=== PATIENT | female | born 1980 | race Hispanic/Latino ===

== ENCOUNTER 2020-07-15 01:44 | Inpatient (IN) | payer OTHER ==
[2020-07-15] MEDS ORDERED: BUTORPHANOL 1 MG/ML INJ IV PRN (03:09)
[2020-07-15] MEDS ORDERED: Ringers Lactate 1,000 ML IV PRN (03:09)
[2020-07-15] MEDS ORDERED: CARBOPROST TROME 250 MCG/ML IM PRN ×2 (03:09→07:07)
[2020-07-15] MEDS ORDERED: PROMETHAZINE INJ 25 MG/ML AMP IV PRN (03:09)
[2020-07-15] MEDS ORDERED: METHYLERGONOVINE 0.2MG/ML AMP IM PRN ×2 (03:09→07:07)
[2020-07-15 03:27] LABS: Basophils % 1.6 % (0-1.3); Hematocrit 40.9 % (36.0-45.0); Lymphocytes % 25.7 % (15.3-44.8); MPV 11.9 fL (7.6-11.3)
[2020-07-15 03:28] VITALS: BMI 27.6
[2020-07-15] MEDS ORDERED: FENTANYL CITR 100 MCG/2 ML IV ONE (03:57)
[2020-07-15] MEDS ORDERED: ROPIVACAINE HCL 100 ML IV PRN ×2 (03:57→07:08)
[2020-07-15] MEDS ORDERED: ROPIVACAINE HCL 0.2% 20ML AMP SQ ONE ×2 (03:59→04:30)
[2020-07-15] MEDS ORDERED: OXYTOCIN/LR 20 UNIT/1,000 ML BAG IV SCH ×2 (04:00→08:00)
[2020-07-15] MEDS ORDERED: Ringers Lactate 1,000 ML IV SCH (04:00)
--- NOTE | 2020-07-15 04:00 | P.PN ---
Date of Service: 07/15/20 39 y/0 female, at 38+ wks gestation admitted with SROM and ctx. Now 4+c, dilated, will call anesthesia for epidural placement.
[2020-07-15] MEDS ORDERED: ROPIVACAINE HCL 20 ML ONE (04:35)
--- NOTE | 2020-07-15 05:10 | PREOPHP ---
Date of Admission: 07/15/2020 History Of Present Illness: Ms. Whitfield is a 39-year-old female, 5, para 1-0 -3-1 and followed by me during this . She is now at 38+ weeks gestation, is admitted with s pontaneous rupture of membranes. She noticed a gush of fluid approximately 10 o'clock last night and this continued. She presents to Labor and Delivery for evaluation. She has been followed by me dur ing this for advanced maternal age, prior spontaneous AB x2. Rh negative blood type. Rube lla nonimmune and gestational diabetes on glyburide. Past Medical History: Please see record. Family History: Please see record. Review of Systems: She denies recent cough, cold, fever, or chills. No recent nausea or vomiting. No breast knots or l umps. Infant has been active. She denies urine symptoms or bowel issues. She is now shayne ap proximately every 2-3 minutes with moderate intensity. Physical Examination: General: Reveals a pleasant female, in mild discomfort. Neck: Supple without adenopathy or thyromegaly. Lungs: Clear. Cardiac: Regular rate and rhythm without murmurs. Breasts: Not examined. Abdomen: 7+ pound estimated weight. PELVIC: Cervix now 4+ cm, soft, anterior vertex at 0 station. Extremities: No cyanosis, clubbing, or edema. heart tones are reactive on the external monitor. Impression: A 38+ weeks , spontaneous rupture of membranes, active labor, advanced maternal age, gestational diabetes on oral medication, rubella nonimmune, Rh negative blood type. Plan: The patient is admitted. We will have anesthesia place, epidural catheter for patient comfort . SARITA/KASSY Voice ID: [id number]
[2020-07-15] MEDS ORDERED: LIDOCAINE 1% MPF 30 ML VIAL ONE (06:52)
[2020-07-15] MEDS ORDERED: Rho(D) IG (HUMAN) 300 MCG SYR IM PRN (07:07)
[2020-07-15] MEDS ORDERED: METHYLERGONOVINE 0.2 MG TAB PO PRN (07:07)
[2020-07-15] MEDS ORDERED: ONDANSETRON 4 MG (ODT) TAB PO PRN (07:07)
[2020-07-15] MEDS ORDERED: Oxycodone HCl/Acetaminophen 1 TAB TAB PO PRN (07:07)
[2020-07-15] MEDS ORDERED: MEASLES,MUMPS,RUBELLA VAC 0.5ML SQVAC ONE (07:07)
[2020-07-15] MEDS ORDERED: Tdap (Diph,Pertuss(Acell),Tet Vac) 0.5 ML SYR IMVAC ONE (07:07)
[2020-07-15] MEDS ORDERED: IBUPROFEN 600 MG TAB PO PRN (07:07)
--- NOTE | 2020-07-15 07:13 | P.BOP ---
Preoperative diagnosis: 38+wk pregancy, AMA, SROM Postoperative diagnosis: viable male infant Primary procedure: SCVD OP Secondary procedure: repair 2 degree midline laceration Estimated blood loss: 100 Anesthesia: epidural Complications: None Transferred to: Other ([id number]) Condition: Good
[2020-07-15 23:51] LABS: RPR (Rapid Plasma Reagin) NON-REACT (NON-REACT)
--- NOTE | 2020-07-16 07:41 | DN ---
Date of Procedure: 07/15/2020 Surgeon: John Ibrahim MD Ms. Whitfield is a 39-year-old female, 5, para 1-0-3-1, at 38+ weeks gestation, admitted with spontaneous rupture of membranes, in labor. She had a first stage of labor of 8 hours and 30 minutes, second stage of labor of 21 minutes. She delivered by spontaneous controlled vagina l delivery of a 5 pounds 15 ounces male infant, 9 and 9, in occiput posterior presentation. Af ter delayed cord clamping, the was placed on mother's upper abdomen. Cord blood was obtained. The placenta was spontaneously expelled and appeared to be intact. Intrauterine examination reveal ed no retained placental fragments. She received 1 mg of Stadol for analgesia prior to placement of an epidural catheter. She suffered a second-degree perineal laceration which was repaired in the usu al fashion with 3-0 Vicryl suture. Quantitative blood loss was 228 mL. The patient tolerated all pr ocedures well. SARITA/KASSY Voice ID: [id number] Report ID: [id number]
[2020-07-16 08:12] VITALS: BP 124/65; TEMP 97.8
[2020-07-16] MEDS ORDERED: Tdap (Diph,Pertuss(Acell),Tet Vac) 0.5 ML SYR IMVAC ONE (08:47)
[2020-07-16] MEDS ORDERED: MEASLES,MUMPS,RUBELLA VAC 0.5ML SQVAC ONE (08:47)
--- NOTE | 2020-07-16 08:52 | DS ---
Final Hospital Discharge Diagnosis: 38+ week , delivered, advanced maternal age, gestationa l diabetes. Complications: None. Procedures: Placement of epidural catheter, Pitocin augmentation of labor, spontaneous controlled va ginal delivery of viable male , repair of second-degree perineal laceration. Hospital Course: The patient is a 39-year-old female, 5, para 1-0-3-1 at 38 + weeks gestation, admitted with spontaneous rupture of membranes in labor. She had an uneventful la bor and delivery of 5-pound 15-ounce male infant with epidural anesthesia. She was dismissed on s t day, ambulatory, on select diet with routine post-vaginal delivery activity restrictions , to be seen back in my office in 6 weeks. She had prescription for Tylenol No. 3, #10 for pain reli ef given. Lab work included an admission hemoglobin and hematocrit of 14.0 and 40.9, dismissal hemog lobin of 11.3. She had a.m. of dismissal glucose of 92. RPR was nonreactive. She did receive RhoGA M because Rh negative blood type and cord blood type was positive. She was immunized for Tdap and Ru celso prior to dismissal with precaution. She is to be seen back in my office in 1 week with usual p ost-vaginal delivery activity restrictions. SARITA/KASSY Voice ID: [id number] Report ID: [id number]
== END 2020-07-16 10:40 | disposition home or self-care (01) | DRG 807 ==
LOC: L&D 01:44 → 2ND-WC 03:03
PROVIDERS: ADMIT Specialist; ATTEND Specialist
PROC: 10E0XZZ Delivery of Products of Conception, External Approach (ICD-10-PCS; principal; 2020-07-16)
PROC: 0KQM0ZZ Repair Perineum Muscle, Open Approach (ICD-10-PCS; 2020-07-16)
DX: O70.1 Second degree perineal laceration during delivery (principal); Z37.0 Single live birth; O24.425 Gestational diabetes mellitus in childbirth, controlled by oral hypoglycemic drugs; O26.893 Other specified pregnancy related conditions, third trimester; Z67.91 Unspecified blood type, Rh negative; Z3A.38 38 weeks gestation of pregnancy; Z23 Encounter for immunization; Z01.812 Encounter for preprocedural laboratory examination; Z20.828 Contact with and (suspected) exposure to other viral communicable diseases
CPT/HCPCS: 36415; 82947; 85018; 85025; 85461; 86592; 86850; 86870; 86900; 86901; 90471; 90707; 90715; J0595; J2210; J2590; J2790; J2795; J3010; J7120; U0003